=== PATIENT | female | born 2000 | race Caucasian/White ===

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

== ENCOUNTER → 2018-01-05 | Outpatient (CLI) | payer OTHER | LOC: M LRY 08:13 | DX: O35.0XX2 Maternal care for (suspected) central nervous system malformation in fetus, fetus 2 (principal); Z3A.19 19 weeks gestation of pregnancy | CPT/HCPCS: 76811 ==

== ENCOUNTER → 2018-02-27 | Outpatient (REF) | payer OTHER | LOC: M LAB REF 13:01 | DX: N39.0 Urinary tract infection, site not specified (principal) ==

== ENCOUNTER → 2018-03-02 | Outpatient (CLI) | payer OTHER ==
[2018-03-02 16:34] LABS: BASO % 0.1 % (0.0-1.0); EOS # 0.1 10^3/uL (0.0-0.50); EOS % 1.7 % (0.0-3.0); HEMATOCRIT 34.1 % (36.0-47.0); HEMOGLOBIN 11.6 g/dl (12.0-15.5); IMMATURE GRANULOCYTE % 0.9 % (0-3.0); LYMPH # 1.9 10^3/uL (1.5-6.5); LYMPH % 22.7 % (24.0-44.0); MEAN CORPUSCULAR HEMOGLOBIN 29.7 pg (27.0-33.0); MEAN CORPUSCULAR VOLUME 87.4 fl (80.0-96.0); MONO # 0.5 10^3/uL (0.0-0.8); MONO % 6.6 % (0.0-5.0); NEUTROPHILS # 5.6 10^3/uL (1.8-7.7); PLATELET COUNT, AUTOMATED 224 10^3/uL (150-450); RED CELL DISTRIBUTION WIDTH 13.1 % (11.5-14.5); WHITE BLOOD COUNT 8.2 10^3/uL (4.0-10.0)
[2018-03-03 11:46] LABS: GLUCOSE CHALLENGE TEST 1 HOUR 114 MG/DL (LESS THAN 140)
== END ==
LOC: M LRY 12:34
DX: Z34.82 Encounter for supervision of other normal pregnancy, second trimester (principal)

== ENCOUNTER → 2018-03-10 | Outpatient (REF) | payer OTHER | LOC: M LAB REF 13:07 | DX: Z34.82 Encounter for supervision of other normal pregnancy, second trimester (principal) ==

== ENCOUNTER → 2018-03-24 | Outpatient (REF) | payer OTHER | LOC: M LAB REF 13:03 | DX: Z34.82 Encounter for supervision of other normal pregnancy, second trimester (principal) | CPT/HCPCS: 87086 ==

== ENCOUNTER 2018-05-01 21:38 | Outpatient (CLI) | payer OTHER | END 2018-05-02 00:01 | disposition home or self-care (01) | LOC: M LDO 21:38 | DX: O47.03 False labor before 37 completed weeks of gestation, third trimester (principal); Z3A.36 36 weeks gestation of pregnancy; O26.893 Other specified pregnancy related conditions, third trimester; O99.343 Other mental disorders complicating pregnancy, third trimester; F32.9 Major depressive disorder, single episode, unspecified; F41.9 Anxiety disorder, unspecified | CPT/HCPCS: 59025 ==

== ENCOUNTER 2018-05-20 14:43 | Inpatient (IN) | payer OTHER ==
[2018-05-20] MEDS: LR 1,000 ML IV (16:29)
[2018-05-20] MEDS: LACTATED RINGER'S 1000 ML IV (16:30)
[2018-05-20] MEDS: OXYTOCIN DRIP 30 UNITS in APPROPRIATE DILUENT 1 EA IV (16:35)
[2018-05-20] MEDS: PENICILLIN G POTASSIUM IV 5 MU in D5W MINI-BAG PLUS 100 ML IV (16:35)
[2018-05-20 16:53] LABS: HEMATOCRIT 34.3 % (36.0-47.0); HEMOGLOBIN 11.7 g/dl (12.0-15.5); MEAN CORPUSCULAR HEMOGLOBIN 29.3 pg (27.0-33.0); MEAN CORPUSCULAR HGB CONC 34.1 g/dl (32.0-36.5); MEAN CORPUSCULAR VOLUME 85.8 fl (80.0-96.0); PLATELET COUNT, AUTOMATED 246 10^3/uL (150-450); RED CELL DISTRIBUTION WIDTH 12.4 % (11.5-14.5); WHITE BLOOD COUNT 7.8 10^3/uL (4.0-10.0)
[2018-05-20] MEDS: PENICILLIN G POTASSIUM IV 2.5 MU in APPROPRIATE DILUENT 1 EA IV (20:40)
[2018-05-20] MEDS ORDERED: FENTANYL 2MCG/ML ROPIVACAINE 0.2% IN 0.9% NACL 200ML IVBAG As Ordered (22:40)
[2018-05-21] MEDS ORDERED: NALOXONE INJ 0.4 MG/1 ML VIAL (J2310) IV
[2018-05-21] MEDS ORDERED: REFRIGERATOR IV KEYS XX
[2018-05-21] MEDS ORDERED: EPIDURAL/PCA KEYS XX
[2018-05-21] MEDS ORDERED: diphenhydrAMINE INJ 50MG/ML VIAL (J1200) IV
[2018-05-21] MEDS ORDERED: ONDANSETRON 4MG/2ML VIAL (J2405) IV
[2018-05-21] MEDS ORDERED: EPIDURAL COMMENT XX
[2018-05-21] MEDS ORDERED: FENTANYL/ROPIVACAINE/NACL BAG 200 ML EPIDURAL
[2018-05-21] MEDS: ePHEDrine SULFATE 25 MG/5 ML(5MG/ML) SYRINGE IV (00:12)
[2018-05-21] MEDS: LACTATED RINGER'S 1000 ML IV (00:13)
[2018-05-21] MEDS: LR 1,000 ML IV (00:13)
[2018-05-21] MEDS: PENICILLIN G POTASSIUM IV 2.5 MU in APPROPRIATE DILUENT 1 EA IV (00:44)
[2018-05-21] MEDS ORDERED: DIBUCAINE 1% OINTMENT 30GM TOP (02:15)
[2018-05-21] MEDS ORDERED: METHYLERGONOVINE MALEATE 0.2 MG TAB PO (02:15)
[2018-05-21] MEDS: miSOPROStol 200 MCG TAB (S0191) PR (02:15)
[2018-05-21] MEDS ORDERED: MEASLES,MUMPS,RUBELLA VACCINE INJ (MMR-II) (90707) SC (02:15)
[2018-05-21] MEDS ORDERED: RHOGAM 300 MCG (1500 IU) INJ (J2790) IM (02:15)
[2018-05-21] MEDS ORDERED: MOM 30ML SUSPENSION UDC PO (02:15)
[2018-05-21] MEDS: ACETAMINOPHEN 500 MG TAB PO (06:03)
[2018-05-21] MEDS: PRENATAL VITAMINS CHEWABLE TABLET PO (08:20)
[2018-05-21] MEDS: IBUPROFEN 800 MG TAB PO (14:26)
[2018-05-22] MEDS: IBUPROFEN 800 MG TAB PO (07:52)
[2018-05-22] MEDS: PRENATAL VITAMINS CHEWABLE TABLET PO (07:52)
== END 2018-05-22 11:50 | disposition home or self-care (01) | DRG 775 ==
LOC: M LDI 14:43 → M OBS 05-21 03:46
PROVIDERS: Advanced Practice Midwife
PROC: 3E033VJ Introduction of Other Hormone into Peripheral Vein, Percutaneous Approach (ICD-10-PCS; 2018-05-20)
PROC: 10907ZC Drainage of Amniotic Fluid, Therapeutic from Products of Conception, Via Natural or Artificial Opening (ICD-10-PCS; 2018-05-20)
PROC: 10E0XZZ Delivery of Products of Conception, External Approach (ICD-10-PCS; principal; 2018-05-21)
DX: O99.824 Streptococcus B carrier state complicating childbirth (principal); Z3A.39 39 weeks gestation of pregnancy; O70.0 First degree perineal laceration during delivery; O32.6XX0 Maternal care for compound presentation, not applicable or unspecified; Z37.0 Single live birth

== ENCOUNTER → 2018-07-09 | Outpatient (REF) | payer OTHER ==
[2018-07-09 22:07] LABS: CHLAMYDIA DNA AMPLIFICATION NEGATIVE (NEGATIVE); GC DNA AMPLIFICATION NEGATIVE (NEGATIVE)
== END ==
LOC: M LAB REF 17:20
DX: Z11.3 Encounter for screening for infections with a predominantly sexual mode of transmission (principal)
CPT/HCPCS: 87591

== ENCOUNTER → 2019-01-20 | Outpatient (REF) | payer OTHER ==
[~2019-01-20] MED LIST: IBUP-1114 PO; MAPA500T2 PO; PRENTAB9 PO; TUMS500C PO
== END ==
LOC: M SFHCLERA 18:48
PROVIDERS: ATTEND Nurse Practitioner Family
DX: R53.81 Other malaise (principal)

== ENCOUNTER → 2019-02-02 | Outpatient (CLI) | payer OTHER ==
[2019-02-02 15:03] LABS: HCG, SERUM QUALITATIVE NEGATIVE (NEGATIVE)
[2019-02-02 15:08] LABS: FREE T4 1.07 NG/DL (0.78-1.33)
[2019-02-02 15:10] LABS: PROLACTIN 22.5 NG/ML
== END ==
LOC: M SMT 09:40
PROVIDERS: ATTEND Advanced Practice Midwife
DX: N91.1 Secondary amenorrhea (principal)

== ENCOUNTER → 2019-07-11 | Outpatient (CLI) | payer OTHER ==
--- NOTE | 2019-07-11 12:31 | REP ---
Clinical: Cough. Comparison: none. Technique: PA and lateral. Findings: The mediastinum and cardiac silhouette are normal. The lung viveros are clear and without acute consolidation, effusion, or pneumothorax. The skeletal structures are intact and normal. Impression: 1. No acute cardiopulmonary process. Electronically Signed by Keith Landry MD 07/11/2019 12:22 P
== END ==
LOC: M LRY 12:13
PROVIDERS: ATTEND Physician Assistant
DX: R05 Cough (principal)
CPT/HCPCS: 71046; G0463

== ENCOUNTER → 2019-09-15 | Outpatient (CLI) | payer OTHER ==
[2019-09-15 13:36] LABS: BASO % 0.3 % (0.0-1.0); EOS # 0.1 10^3/uL (0.0-0.5); EOS % 0.9 % (0.0-3.0); HEMATOCRIT 44.5 % (36.0-47.0); HEMOGLOBIN 14.4 g/dl (12.0-15.5); LYMPH # 1.9 10^3/uL (1.5-5.0); LYMPH % 27.4 % (24.0-44.0); MEAN CORPUSCULAR HEMOGLOBIN 28.4 pg (27.0-33.0); MEAN CORPUSCULAR HGB CONC 32.4 g/dl (32.0-36.5); MEAN CORPUSCULAR VOLUME 87.8 fl (80.0-96.0); MONO # 0.5 10^3/uL (0.0-0.8); MONO % 6.7 % (0.0-5.0); NEUTROPHILS # 4.4 10^3/uL (1.5-8.5); NEUTROPHILS % 64.4 % (36.0-66.0); PLATELET COUNT, AUTOMATED 272 10^3/uL (150-450); RED BLOOD COUNT 5.07 10^6/uL (4.00-5.40); WHITE BLOOD COUNT 6.8 10^3/uL (4.0-10.0)
[2019-09-15 14:19] LABS: ALBUMIN 4.1 GM/DL (3.2-5.2); ALT/SGPT 19 U/L (12-78); BILIRUBIN,TOTAL 0.8 MG/DL (0.2-1.0); BLOOD UREA NITROGEN 16 MG/DL (7-18); CALCIUM LEVEL 9.1 MG/DL (8.5-10.1); CARBON DIOXIDE LEVEL 28 MEQ/L (21-32); CHLORIDE LEVEL 105 MEQ/L (98-107); CREATININE FOR GFR 0.75 MG/DL (0.55-1.30); FREE T4 0.87 NG/DL (0.76-1.46); GLOMERULAR FILTRATION RATE > 60.0 (>60); GLUCOSE, FASTING 89 MG/DL (70-100); POTASSIUM SERUM 4.5 MEQ/L (3.5-5.1); SODIUM LEVEL 139 MEQ/L (136-145); TOTAL 25(OH) VITAMIN D 15.4 NG/ML (30.0-100.0); TOTAL PROTEIN 7.3 GM/DL (6.4-8.2)
== END ==
LOC: M SMT 11:20
PROVIDERS: ATTEND Physician Assistant
DX: F33.1 Major depressive disorder, recurrent, moderate (principal)

== ENCOUNTER → 2020-04-06 | Outpatient (REF) | payer OTHER | LOC: M SFHCLERA 16:55 | PROVIDERS: ATTEND Physician Assistant | DX: M54.5 Low back pain (principal); R11.0 Nausea; Z97.5 Presence of (intrauterine) contraceptive device | CPT/HCPCS: 74018; 81002; 81025; 87086; 96372; G0463; J1885 ==

== ENCOUNTER → 2020-04-06 | Outpatient (CLI) | payer OTHER ==
--- NOTE | 2020-04-06 17:07 | REP ---
KUB: Single view. History: Nausea. Findings: An IUD is seen in the mid pelvis. The bowel gas pattern is normal. Psoas margins and flank stripes are intact. No mass, organomegaly, or pathologic calcification is seen. Impression: Negative KUB. IUD in place. Electronically Signed by Gary Islas MD 04/06/2020 04:58 P
== END ==
LOC: M LRY 16:46
PROVIDERS: ATTEND Physician Assistant
DX: R11.0 Nausea (principal); Z97.5 Presence of (intrauterine) contraceptive device